=== PATIENT | male | born 1955 | race Caucasian/White ===

== ENCOUNTER 2020-09-25 18:23 | Inpatient (IN) | payer MEDICAID, OTHER ==
[~2020-09-25] VITALS: Ht 172.7 cm; Wt 90.7 kg
[2020-09-25 22:12] LABS: Basophils # (auto) 0 10 ^3/uL (0-0.2); Basophils % (auto) 0.5 % (0.0-2.0); Eosinophils # (auto) 0.1 10 ^3/uL (0-0.8); Hematocrit 42.3 % (41.0-53.0); Hemoglobin 14.8 g/dL (13.5-17.5); Lymphocytes % (auto) 32.1 % (10.0-50.0); Mean Corpuscular Hemoglobin 30.9 pg (28.0-32.0); Mean Corpuscular Hgb Conc. 34.9 g/dL (32.0-36.0); Mean Corpuscular Volume 88.6 fL (80.0-100.0); Monocytes # (auto) 0.7 10 ^3/uL (0-1.3); Monocytes % (auto) 7.4 % (0.0-12.0); Neutrophils # (auto) 5.5 10 ^3/uL (1.6-8.6); Nucleated Red Blood Cells % 0.2 %; Platelet Count (auto) 296 10^3/uL (140-450); Red Blood Cells 4.77 10^6/uL (4.5-5.90); Red Cell Distribution Width 13.9 % (11.8-14.3); White Blood Cell 9.4 10^3/uL (4.4-10.8)
[2020-09-25 22:31] LABS: Potassium 3.6 mmol/L (3.5-5.1)
[2020-09-25 22:37] LABS: Bilirubin, Total 0.5 mg/dL (0.2-1.0)
[2020-09-25 22:39] LABS: Urine Bacteria FEW /hpf (None Seen); Urine Blood 3+ /uL (Negative); Urine Mucus FEW (None Seen); Urine Specific Gravity 1.017 (1.001-1.035); Urine WBC 12 /hpf (0 - 3)
[2020-09-25 23:37] LABS: INR 1.03 (0.9-1.15); Partial Thromboplastin Time 28.3 sec (23.0-31.2)
[2020-09-26] MEDS ORDERED: ONDANSETRON HCL 4 MG/2 ML VIAL IV PRN
[2020-09-26] MEDS ORDERED: MORPHINE SULF INJ 2 MG/ML SYRINGE 1ML IV PRN
[2020-09-26] MEDS: SODIUM CHLORIDE 0.9% 1,000 ML IV SCH ×3 (05:14→20:00)
[2020-09-26 05:30] VITALS: BP 120/62
[2020-09-26 08:58] LABS: Calcium 8.9 mg/dL (8.5-10.1); Potassium 3.4 mmol/L (3.5-5.1)
[2020-09-26 09:08] LABS: Basophils # (auto) 0 10 ^3/uL (0-0.2); Basophils % (auto) 0.7 % (0.0-2.0); Eosinophils # (auto) 0.1 10 ^3/uL (0-0.8); Eosinophils % (auto) 2.1 % (0.0-7.0); Hematocrit 38.8 % (41.0-53.0); Hemoglobin 13.4 g/dL (13.5-17.5); Lymphocytes # (auto) 2.2 10 ^3/uL (0.4-5.4); Lymphocytes % (auto) 34.6 % (10.0-50.0); Mean Corpuscular Hemoglobin 30.5 pg (28.0-32.0); Mean Corpuscular Hgb Conc. 34.6 g/dL (32.0-36.0); Mean Corpuscular Volume 88.2 fL (80.0-100.0); Monocytes # (auto) 0.7 10 ^3/uL (0-1.3); Monocytes % (auto) 11.1 % (0.0-12.0); Neutrophils # (auto) 3.3 10 ^3/uL (1.6-8.6); Neutrophils % (auto) 51.5 % (37.0-80.0); Nucleated Red Blood Cells % 0.1 %; Platelet Count (auto) 265 10^3/uL (140-450); Red Cell Distribution Width 14.2 % (11.8-14.3); White Blood Cell 6.4 10^3/uL (4.4-10.8)
[2020-09-26] MEDS: cefTRIAXone 1GM/50ML D5W 50 ML IV SCH (10:00)
[2020-09-26] MEDS ORDERED: TEMAZEPAM 15 MG CAP PO PRN (15:00)
[2020-09-26] MEDS ORDERED: QUET100T46 PO (15:27)
[2020-09-26] MEDS ORDERED: LOSA100T33 PO (15:27)
[2020-09-26] MEDS ORDERED: CHOL20007 PO (15:27)
[2020-09-26] MEDS ORDERED: LAMO25TA27 PO (15:27)
[2020-09-26] MEDS ORDERED: TAMS1CAP25 PO (15:27)
[2020-09-26] MEDS ORDERED: GABA100C9 PO (15:35)
[2020-09-26] MEDS ORDERED: FINA5TAB4 PO (15:35)
[2020-09-26] MEDS ORDERED: DICL-176 PO (15:35)
[2020-09-26] MEDS ORDERED: ATOR10TA52 PO (15:35)
[2020-09-26] MEDS: POTASSIUM EFFERVESENT TAB 25 MEQ PO ONE (22:15)
[2020-09-27] MEDS: SODIUM CHLORIDE 0.9% 1,000 ML IV SCH (06:00)
[2020-09-27 07:37] LABS: Basophils # (auto) 0 10 ^3/uL (0-0.2); Basophils % (auto) 0.6 % (0.0-2.0); Eosinophils # (auto) 0.2 10 ^3/uL (0-0.8); Eosinophils % (auto) 3.1 % (0.0-7.0); Hematocrit 39.3 % (41.0-53.0); Hemoglobin 13.6 g/dL (13.5-17.5); Lymphocytes # (auto) 2.4 10 ^3/uL (0.4-5.4); Mean Corpuscular Hemoglobin 30.5 pg (28.0-32.0); Mean Corpuscular Hgb Conc. 34.6 g/dL (32.0-36.0); Mean Corpuscular Volume 88.2 fL (80.0-100.0); Monocytes # (auto) 0.7 10 ^3/uL (0-1.3); Monocytes % (auto) 9.7 % (0.0-12.0); Neutrophils % (auto) 54.6 % (37.0-80.0); Nucleated Red Blood Cells % 0.1 %; Platelet Count (auto) 261 10^3/uL (140-450); Red Blood Cells 4.46 10^6/uL (4.5-5.90); White Blood Cell 7.4 10^3/uL (4.4-10.8)
[2020-09-27 07:54] LABS: Potassium 3.7 mmol/L (3.5-5.1)
[2020-09-27 07:57] LABS: BUN/Creatinine Ratio 18.3
[2020-09-27 08:00] VITALS: BP 107/79
[2020-09-27] MEDS ORDERED: LIDOCAINE 2%HCL (LOCAL ANESTH.) INJ 20ML MDV ONE (09:26)
[2020-09-27] MEDS ORDERED: fentaNYL CITRATE 100 MCG/2 ML VL ONE (09:31)
[2020-09-27] MEDS ORDERED: MIDAZOLAM HCL 1MG/1ML-2 ML VIAL ONE (09:31)
[2020-09-27] MEDS: cefTRIAXone 1GM/50ML D5W 50 ML IV SCH (13:15)
[2020-09-27 16:30] VITALS: BP 106/67
[2020-09-27] MEDS ORDERED: LEVO-28 PO (16:34)
[2020-09-27 18:17] VITALS: BP 106/67
[2020-09-28] MEDS ORDERED: levoFLOXacin 500 MG TAB PO SCH (10:00)
== END 2020-09-27 19:05 | disposition home health service (06) | DRG 466 ==
LOC: ER 18:24 → OVERFLOW 18:25 → CENTRAL 09-27 02:15
PROVIDERS: ADMIT Hospitalist; ATTEND Hospitalist
PROC: 0T9130Z Drainage of Left Kidney with Drainage Device, Percutaneous Approach (ICD-10-PCS; principal; 2020-09-27)
PROC: BT1F1ZZ Fluoroscopy of Left Kidney, Ureter and Bladder using Low Osmolar Contrast (ICD-10-PCS; 2020-09-27)
DX: T83.192A Other mechanical complication of indwelling ureteral stent, initial encounter (principal); N13.6 Pyonephrosis; E78.5 Hyperlipidemia, unspecified; F32.9 Major depressive disorder, single episode, unspecified; I12.9 Hypertensive chronic kidney disease with stage 1 through stage 4 chronic kidney disease, or unspecified chronic kidney disease; K76.0 Fatty (change of) liver, not elsewhere classified; M51.36 Other intervertebral disc degeneration, lumbar region; N17.9 Acute kidney failure, unspecified; N18.9 Chronic kidney disease, unspecified; N40.0 Benign prostatic hyperplasia without lower urinary tract symptoms; Z87.442 Personal history of urinary calculi; F43.10 Post-traumatic stress disorder, unspecified; G47.00 Insomnia, unspecified; Z20.822 Contact with and (suspected) exposure to COVID-19
CPT/HCPCS: 36415; 50432; 74176; 74425; 76942; 80048; 80053; 81001; 85025; 85610; 85730; 87426; 99152; C1729; G0378; J0696; J2250

== ENCOUNTER 2020-10-13 08:23 | Emergency (ER) | payer MEDICAID ==
[~2020-10-13] VITALS: Ht 177.8 cm; Wt 99.8 kg
[2020-10-13 09:01] VITALS: BP 113/66
== END 2020-10-13 10:52 | disposition left against medical advice (07) ==
LOC: ER 08:23
DX: R31.9 Hematuria, unspecified (principal); Z87.442 Personal history of urinary calculi

== ENCOUNTER → 2020-10-13 | Outpatient (CLI) | payer MEDICAID ==
[~2020-10-13] MED LIST: ATOR10TA52 PO; CHOL20007 PO; FINA5TAB4 PO; GABA100C9 PO; LAMO25TA27 PO; LEVO-28 PO; LOSA100T33 PO; QUET100T46 PO; TAMS1CAP25 PO
[2020-10-13 16:20] LABS: Basophils # (auto) 0.1 10 ^3/uL (0-0.2); Basophils % (auto) 0.8 % (0.0-2.0); Eosinophils # (auto) 0.2 10 ^3/uL (0-0.8); Eosinophils % (auto) 2.2 % (0.0-7.0); Hematocrit 40.3 % (41.0-53.0); Lymphocytes # (auto) 2.5 10 ^3/uL (0.4-5.4); Lymphocytes % (auto) 28.4 % (10.0-50.0); Mean Corpuscular Hemoglobin 30.6 pg (28.0-32.0); Mean Corpuscular Hgb Conc. 34.7 g/dL (32.0-36.0); Mean Corpuscular Volume 88.1 fL (80.0-100.0); Monocytes # (auto) 0.7 10 ^3/uL (0-1.3); Monocytes % (auto) 8.4 % (0.0-12.0); Neutrophils # (auto) 5.2 10 ^3/uL (1.6-8.6); Neutrophils % (auto) 60.2 % (37.0-80.0); Platelet Count (auto) 290 10^3/uL (140-450); Red Blood Cells 4.58 10^6/uL (4.5-5.90); Red Cell Distribution Width 13.8 % (11.8-14.3); White Blood Cell 8.7 10^3/uL (4.4-10.8)
[2020-10-13 16:29] LABS: Urine Bacteria NONE SEEN /hpf (None Seen); Urine Blood 3+ /uL (Negative); Urine Specific Gravity 1.014 (1.001-1.035); Urine WBC 4 /hpf (0 - 3)
[2020-10-13 16:35] LABS: Albumin 3.7 g/dL (3.4-5.0); Calcium 8.8 mg/dL (8.5-10.1); Potassium 3.9 mmol/L (3.5-5.1)
[2020-10-13 16:37] LABS: BUN/Creatinine Ratio 12.6; Bilirubin, Total 0.7 mg/dL (0.2-1.0); Total Protein 7.9 g/dL (6.4-8.2)
[2020-10-13 16:39] LABS: INR 1.01 (0.9-1.15); Partial Thromboplastin Time 28.5 sec (23.0-31.2)
== END | disposition home or self-care (01) ==
LOC: LAB 16:03
PROVIDERS: ATTEND Urology
DX: Z01.818 Encounter for other preprocedural examination (principal); M79.89 Other specified soft tissue disorders; D53.8 Other specified nutritional anemias; N39.0 Urinary tract infection, site not specified
CPT/HCPCS: 36415; 80053; 81001; 85025; 85610; 85730; 87086

== ENCOUNTER 2020-12-09 14:57 | Inpatient (IN) | payer MEDICAID ==
[~2020-12-09] VITALS: Ht 177.8 cm; Wt 102.3 kg
[2020-12-09 15:37] LABS: Basophils # (auto) 0.1 10 ^3/uL (0-0.2); Basophils % (auto) 0.7 % (0.0-2.0); Eosinophils # (auto) 0.1 10 ^3/uL (0-0.8); Eosinophils % (auto) 1.7 % (0.0-7.0); Hemoglobin 13.8 g/dL (13.5-17.5); Lymphocytes # (auto) 2.7 10 ^3/uL (0.4-5.4); Mean Corpuscular Hemoglobin 30.5 pg (28.0-32.0); Mean Corpuscular Hgb Conc. 34.6 g/dL (32.0-36.0); Mean Corpuscular Volume 88.2 fL (80.0-100.0); Monocytes # (auto) 0.5 10 ^3/uL (0-1.3); Monocytes % (auto) 6.8 % (0.0-12.0); Neutrophils # (auto) 4.3 10 ^3/uL (1.6-8.6); Neutrophils % (auto) 55.8 % (37.0-80.0); Nucleated Red Blood Cells % 0.3 %; Platelet Count (auto) 287 10^3/uL (140-450); Red Blood Cells 4.54 10^6/uL (4.5-5.90); Red Cell Distribution Width 13.8 % (11.8-14.3); White Blood Cell 7.8 10^3/uL (4.4-10.8)
[2020-12-09] MEDS ORDERED: SODIUM CHLORIDE 0.9% 1,000 ML IVB ONE (16:00)
[2020-12-09 16:10] LABS: Albumin 3.7 g/dL (3.4-5.0); Calcium 8.7 mg/dL (8.5-10.1); Potassium 3.8 mmol/L (3.5-5.1)
[2020-12-09 16:16] LABS: BUN/Creatinine Ratio 18.5; Bilirubin, Total 0.4 mg/dL (0.2-1.0); Total Protein 7.4 g/dL (6.4-8.2)
[2020-12-09 16:50] LABS: Urine Bacteria FEW /hpf (None Seen); Urine Blood 3+ /uL (Negative); Urine Hyaline Cast FEW /lpf (0 - 2); Urine Specific Gravity 1.017 (1.001-1.035); Urine WBC 86 /hpf (0 - 3)
[2020-12-09 16:54] LABS: Magnesium 2.4 mg/dL (1.6-2.6)
[2020-12-09 17:03] LABS: INR 0.98 (0.9-1.15); Partial Thromboplastin Time 27.1 sec (23.0-31.2)
[2020-12-09] MEDS ORDERED: cefTRIAXone 1GM/50ML D5W 50 ML IV ONE (17:30)
[2020-12-09] MEDS ORDERED: HYDROmorphone HCL 2 MG/ML VL IV PRN (20:15)
[2020-12-09] MEDS ORDERED: ONDANSETRON HCL 4 MG/2 ML VIAL IV PRN (20:15)
[2020-12-09] MEDS ORDERED: NITROGLYCERIN 0.4 MG SL TAB SL PRN (20:30)
[2020-12-09] MEDS ORDERED: MORPHINE SULF INJ 2 MG/ML SYRINGE 1ML IV PRN (20:30)
[2020-12-09] MEDS: SODIUM CHLORIDE 0.9% 1,000 ML IV SCH (20:44)
[2020-12-09] MEDS: HEPARIN SODIUM (PORCINE) 5000 UNITS/ML 1ML VIAL SC SCH (22:00)
[2020-12-09] MEDS ORDERED: MANNITOL FTV 25% 12.5 GM/50 ML 50 ML IV ONE (22:15)
[2020-12-09 23:19] VITALS: BP 130/72
[2020-12-10] MEDS: SODIUM CHLORIDE 0.9% 1,000 ML IV SCH ×3 (04:30→21:07)
[2020-12-10 05:00] VITALS: BP 116/63
[2020-12-10 05:43] LABS: Basophils # (auto) 0 10 ^3/uL (0-0.2); Basophils % (auto) 0.7 % (0.0-2.0); Eosinophils # (auto) 0.1 10 ^3/uL (0-0.8); Hematocrit 37.1 % (41.0-53.0); Hemoglobin 13.1 g/dL (13.5-17.5); Lymphocytes # (auto) 2.1 10 ^3/uL (0.4-5.4); Lymphocytes % (auto) 29.4 % (10.0-50.0); Mean Corpuscular Hemoglobin 30.9 pg (28.0-32.0); Mean Corpuscular Hgb Conc. 35.2 g/dL (32.0-36.0); Mean Corpuscular Volume 87.8 fL (80.0-100.0); Monocytes # (auto) 0.6 10 ^3/uL (0-1.3); Monocytes % (auto) 8.5 % (0.0-12.0); Neutrophils # (auto) 4.2 10 ^3/uL (1.6-8.6); Neutrophils % (auto) 59.4 % (37.0-80.0); Nucleated Red Blood Cells % 0.1 %; Platelet Count (auto) 261 10^3/uL (140-450); Red Blood Cells 4.23 10^6/uL (4.5-5.90); Red Cell Distribution Width 13.6 % (11.8-14.3); White Blood Cell 7.1 10^3/uL (4.4-10.8)
[2020-12-10] MEDS: HEPARIN SODIUM (PORCINE) 5000 UNITS/ML 1ML VIAL SC SCH ×3 (05:54→21:52)
[2020-12-10 06:11] LABS: Potassium 3.9 mmol/L (3.5-5.1)
[2020-12-10 09:00] VITALS: BP 124/7
[2020-12-10] MEDS ORDERED: LIDOCAINE 2% JELLY 11ml (GLYDO) UR ONE (09:45)
[2020-12-10] MEDS ORDERED: cefTRIAXone 1GM/50ML D5W 50 ML IV ONE (10:00)
[2020-12-10 13:00] VITALS: BP_SYST 125; BP_SYST 134; BP_DIAS 78; BP_DIAS 84
[2020-12-10 17:00] VITALS: BP 114/66
[2020-12-10 17:16] VITALS: BP 114/66
[2020-12-10 22:00] VITALS: BP 107/65
[2020-12-11] MEDS ORDERED: QUEtiapine FUMARATE 100 MG TAB PO PRN (04:15)
[2020-12-11] MEDS: SODIUM CHLORIDE 0.9% 1,000 ML IV SCH ×3 (04:47→20:30)
[2020-12-11 05:00] VITALS: BP 127/63
[2020-12-11] MEDS: GABAPENTIN 100 MG CAP PO SCH ×3 (05:44→20:54)
[2020-12-11 08:00] VITALS: BP 112/71
[2020-12-11 08:42] VITALS: BP 112/71
[2020-12-11] MEDS: cefTRIAXone 1GM/50ML D5W 50 ML IV SCH (09:36)
[2020-12-11] MEDS: TAMSULOSIN HYDROCHLORIDE 0.4 MG CAP PO SCH (10:13)
[2020-12-11] MEDS: lamoTRIgine 25 MG TAB PO SCH (10:14)
[2020-12-11] MEDS: FINASTERIDE 5 MG TAB PO SCH (10:14)
[2020-12-11] MEDS ORDERED: ceFAZolin 1GM/50ML 50 ML IV ONE (14:37)
[2020-12-11] MEDS ORDERED: fentaNYL CITRATE 100 MCG/2 ML VL ONE (16:53)
[2020-12-11] MEDS ORDERED: MEPERIDINE HCL (50 MG/ML) 1 ML VIAL ONE (16:54)
[2020-12-11] MEDS ORDERED: MIDAZOLAM HCL 1MG/1ML-2 ML VIAL ONE (16:54)
[2020-12-11] MEDS ORDERED: PROPOFOL 10 MG/ML 20 ML IV ONE (17:05)
[2020-12-11] MEDS ORDERED: DexAMETHasone SOD PHOS 10MG/1ML VIAL INJ ONE (17:05)
[2020-12-11] MEDS ORDERED: ePHEDrine SULFATE 50 MG/ML AMP ONE (17:21)
[2020-12-11] MEDS ORDERED: ONDANSETRON HCL 4 MG/2 ML VIAL ONE (17:30)
[2020-12-11] MEDS ORDERED: HYDROmorphone HCL 2 MG/ML VL IV PRN (18:15)
[2020-12-11] MEDS ORDERED: ePHEDrine SULFATE 50 MG/ML AMP IV PRN (18:15)
[2020-12-11] MEDS ORDERED: ONDANSETRON HCL 4 MG/2 ML VIAL IV PRN (18:15)
[2020-12-11] MEDS ORDERED: MORPHINE SULFATE 4 MG/ML SYR/VIAL IV PRN (18:15)
[2020-12-11] MEDS ORDERED: hydrALAZINE HCL 20 MG/ML VL IV PRN (18:15)
[2020-12-11] MEDS ORDERED: LABETALOL HCL 5 MG/ML 4ML SYRINGE IV PRN (18:15)
[2020-12-11] MEDS ORDERED: MIDAZOLAM HCL 1MG/1ML-2 ML VIAL IV PRN (18:15)
[2020-12-11] MEDS ORDERED: CEPH500C PO (21:08)
[2020-12-11 22:00] VITALS: BP 130/79
[2020-12-12] MEDS: SODIUM CHLORIDE 0.9% 1,000 ML IV SCH ×2 (04:30→12:30)
[2020-12-12 05:00] VITALS: BP 100/50
[2020-12-12] MEDS: GABAPENTIN 100 MG CAP PO SCH ×2 (06:48→15:19)
[2020-12-12 08:00] VITALS: BP 109/56
[2020-12-12 08:36] VITALS: BP 109/56
[2020-12-12] MEDS: cefTRIAXone 1GM/50ML D5W 50 ML IV SCH (10:03)
[2020-12-12] MEDS: lamoTRIgine 25 MG TAB PO SCH (10:03)
[2020-12-12] MEDS: TAMSULOSIN HYDROCHLORIDE 0.4 MG CAP PO SCH (10:03)
[2020-12-12] MEDS: FINASTERIDE 5 MG TAB PO SCH (10:04)
[2020-12-12 12:46] VITALS: BP 101/65
== END 2020-12-12 15:37 | disposition home or self-care (01) | DRG 443 ==
LOC: ER 14:57 → OVERFLOW 20:17 → WEST WING 23:19
PROVIDERS: ADMIT Hospitalist; ATTEND Hospitalist
PROC: 0TC18ZZ Extirpation of Matter from Left Kidney, Via Natural or Artificial Opening Endoscopic (ICD-10-PCS; 2020-12-11)
PROC: BT121ZZ Fluoroscopy of Left Kidney using Low Osmolar Contrast (ICD-10-PCS; 2020-12-11)
PROC: 0T9B70Z Drainage of Bladder with Drainage Device, Via Natural or Artificial Opening (ICD-10-PCS; 2020-12-11)
PROC: 0TP98DZ Removal of Intraluminal Device from Ureter, Via Natural or Artificial Opening Endoscopic (ICD-10-PCS; principal; 2020-12-11 16:45)
PROC: 0T778DZ Dilation of Left Ureter with Intraluminal Device, Via Natural or Artificial Opening Endoscopic (ICD-10-PCS; 2020-12-11 16:45)
DX: N13.6 Pyonephrosis (principal); N17.9 Acute kidney failure, unspecified; G62.9 Polyneuropathy, unspecified; N18.32 Chronic kidney disease, stage 3b; N40.0 Benign prostatic hyperplasia without lower urinary tract symptoms; F31.9 Bipolar disorder, unspecified; Z20.822 Contact with and (suspected) exposure to COVID-19; I12.9 Hypertensive chronic kidney disease with stage 1 through stage 4 chronic kidney disease, or unspecified chronic kidney disease; R79.89 Other specified abnormal findings of blood chemistry; F43.10 Post-traumatic stress disorder, unspecified; E78.5 Hyperlipidemia, unspecified; G47.00 Insomnia, unspecified; Z82.49 Family history of ischemic heart disease and other diseases of the circulatory system; Z87.442 Personal history of urinary calculi
CPT/HCPCS: 36415; 71045; 74018; 74176; 80048; 80053; 81001; 83690; 83735; 85025; 85610; 85730; 87426; 93005; 96365; 96367; G0378; J0690; J0696; J1100; J2250; J2405; J2704